=== PATIENT | female | born 1950 | race Caucasian/White ===

== ENCOUNTER 2017-05-21 13:03 | Inpatient (IN) | payer OTHER ==
--- NOTE | ~2017-05-21 | CR72 ---
[facility] A Service of [facility] RADIOLOGY TEXT RESULTS PATIENT: CLAYTON OLIVAS LOCATION: CEDOF : 49 UNIT #: [id number] AGE: [address]: Krys Castillo MD SEX: F ORDER DR: [id number] [facility] [address] [place], [place] [address] [id number] MR#: [id number] #: [id number] NAME: CLAYTON OLIVAS : 1950 SEX: F STUDY DATE/TIME: 05/21/2017 13:35 UNIT: [facility] ROOM: STUDY DESCRIPTION: CR Chest Single View Portable Attending Physician: Mike Santizo M.D. Ordering Physician: Mike Santizo M.D. Primary Care Physician: Akila Mahmood M.D. MEDICAL IMAGING REPORT This report is preliminary unless electronic signature is present EXAM Chest portable, 05/21/2017, 1335 hours. CLINICAL HISTORY 66-year-old woman with shortness of air today. History of hypertension and diabetes. COMPARISON 10/12/2016 FINDINGS Portable upright chest demonstrates mild cardiac enlargement increased from 10/12/2016. There is mild pulmonary venous distension and very mild bilateral interstitial change new from prior study. Findings are concerning for mild edema. There is no effusion or pneumothorax. IMPRESSION As compared to 10/12/2016, there is slight increase in size of the cardiac silhouette with new mild diffuse bilateral interstitial change raising concern for edema. There is no pleural effusion or pneumothorax. Dictated by... Lorena Krueger M.D. THIS IS AN ELECTRONICALLY VERIFIED REPORT Lorena Krueger M.D. at 05/21/2017 5:18 PM THAIS/sarah TD: 05/21/2017 16:53 JOB #: [id number] MEDICAL IMAGING REPORT [facility] A Service [facility] RADIOLOGY TEXT RESULTS PATIENT: CLAYTON OLIVAS LOCATION: CEDOF : 49 UNIT #: [id number] AGE: [address]: Krys Castillo MD SEX: F ORDER DR: Page 1 of 1 COPY
--- NOTE | ~2017-05-21 | PFT ---
[id number] [facility] [address] [place], [place] [address] [id number] MR#: [id number] NAME: CLAYTON OLIVAS ROOM: 557 SEX: F STUDY DATE/TIME: 05/26/2017 : 1950 AGE: 66 STUDY DESCRIPTION: Attending Physician: Krys Castillo M.D. Primary Care Physician: Akila Mahmood M.D. PULMONARY DIAGNOSTIC REPORT EXAM Pulmonary function test. FINDINGS Spirometry suggests a severe restrictive defect with an FVC of 960 cc, 28% of predicted. No definite obstructive defect was identified. Flow volume loop consistent with restriction. Please note that restriction cannot be confirmed by spirometry alone and suggests full PFTs with lung volumes and diffusion capacity if clinically indicated. Dictated by... Wyatt Watson/beth TD: 05/26/2017 09:23 JOB #: [id number] CC: Wyatt Watson M.D. PULMONARY DIAGNOSTIC REPORT Page 1 of 1
--- NOTE | ~2017-05-21 | EKG ---
PATIENT: CLAYTON OLIVAS UNIT #: [id number] Ventricular Rate: 111 BPM Atrial Rate: 300 BPM QRS Duration: 76 ms Q-T Interval: 378 ms QTC Calculation(Bezet): 514 ms P [place]: 58 degrees Calculated R [place]: 24 degrees Calculated T [place]: 101 degrees Diagnosis Line: Atrial flutter with variable A-V block with Diagnosis Line: premature ventricular or aberrantly conducted Diagnosis Line: complexes Diagnosis Line: Abnormal ECG Diagnosis Line: When compared with ECG of 21-MAY-2017 13:25, Diagnosis Line: (unconfirmed) Diagnosis Line: No significant change was found Diagnosis Line: Confirmed by AYANNA GARLAND MD ([id number]) on Diagnosis Line: 05/23/2017 9:54:48 AM INTERPRETING MD: MELONIE
--- NOTE | ~2017-05-21 | EKG ---
PATIENT: CLAYTON OLIVAS UNIT #: [id number] Ventricular Rate: 149 BPM Atrial Rate: 298 BPM QRS Duration: 136 ms Q-T Interval: 340 ms QTC Calculation(Bezet): 535 ms Calculated R [place]: 12 degrees Calculated T [place]: -128 degrees Diagnosis Line: Atrial flutter with 2:1 A-V conduction Diagnosis Line: Non-specific intra-ventricular conduction block Diagnosis Line: T wave abnormality, consider inferior ischemia Diagnosis Line: T wave abnormality, consider anterolateral Diagnosis Line: ischemia Diagnosis Line: Abnormal ECG Diagnosis Line: No previous ECGs available Diagnosis Line: Confirmed by LINA MOSCOSO MD ([id number]) on Diagnosis Line: 05/21/2017 5:28:35 PM INTERPRETING MD: BLANKA DE LA GARZA
--- NOTE | ~2017-05-21 | DS ---
Unit #: [id number] #: [id number] Patient: CLAYTON OLIVAS [id number] [facility] [address] [place], [place] [address] [id number] I MR#: [id number] NAME: CLAYTON OLIVAS ROOM: 55 Age: 66 Sex: F Admission Date: 05/21/2017 : 1950 Discharge Date: 05/25/2017 Attending Physician: Krys Castillo M.D. Primary Care Physician: Akila Mahmood M.D. DISCHARGE SUMMARY DISCHARGE DIAGNOSES 1. Acute hypoxic respiratory failure. 2. Acute bronchitis, resolved. 3. Chronic obstructive pulmonary disease exacerbation. 4. Atrial flutter with a 2:1 atrioventricular block of unknown duration. 5. Severe pulmonary artery hypertension. 6. Hypertension. 7. Hyperlipidemia. 8. Diabetes mellitus type 2. 9. Nicotine abuse. 10. Two-dimensional echocardiogram 05/22/2017 showed an ejection fraction of 50% to 55% paradoxical motion consistent with right ventricular volume overload and/or elevated right ventricular end-diastolic pressure. Moderately dilated left atrium. Moderately enlarged right atrium. Moderate tricuspid regurgitation. Right ventricular systolic pressure of 64 mmHg consistent with severe pulmonary hypertension. 11. 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 12. Status post cardiac catheterization 05/24/[address] Ho at [facility] that reveals the following results: a. Left main normal. b. Left anterior descending with moderate to severe calcification of the proximal half. The longer of the two left anterior descending arteries is normal and reaches the apex. The shorter of the two left anterior descending division shows three areas of 90% to 95% stenosis with the distal vessel being very small in caliber. Septal senior operations manager is normal. c. Circumflex artery is normal. d. Right coronary artery is a large-caliber dominant vessel with moderate to severe calcification in its mid segment. There is a long segment of 60% to 70% stenosis seen in mid vessel. Posterior descending artery and posterior left ventricular branches normal. e. Ejection fraction of 45% to 50%. f. Abdominal aortic angiography shows distal abdominal aorta with mild to moderate calcification and mild stenosis. Right common iliac artery with 99% stenosis at its origin. g. Severe pulmonary hypertension with pulmonary artery pressures 62/31 mmHg. Left ventricle with mild global hypokinesis. DISCHARGE MEDICATIONS 1. Nicotine 21 mg transdermal patch daily. 2. Metoprolol tartrate 50 mg b.i.d. Unit #: [id number] #: [id number] Patient: CLAYTON OLIVAS 3. Furosemide 40 mg daily. 4. Pravastatin 40 mg q.h.s. 5. Lisinopril 5 mg q.h.s. 6. Aspirin 81 mg daily. 7. Xarelto 20 mg daily with evening meal. 8. ProAir HFA two puffs q.6 h. p.r.n. 9. Glucophage 500 mg b.i.d. 10. Zyrtec 10 mg daily. HOSPITAL COURSE This is a 66-year-old white female who was admitted with a complaint of shortness of breath, cough and weakness. She also had exertional chest pain. She was ruled out for an acute myocardial infarction where her troponin was negative. It was felt the patient had acute hypoxic respiratory failure because the oxygen saturation level was 55%. She received oxygen supplementation. She was found to be in atrial flutter with a 2:1 conduction and a rapid ventricular response with a rate of 149 beats per minute with unknown duration. She was started on beta jillian for rate control. She was initially started on Lovenox for stroke prevention with a CHADS2-VASc score of 4. It was presumed that the patient had congestive heart failure on admission but the BMP was only mildly elevated at 224. Her chest x-ray showed no congestive heart failure. She had no diastolic dysfunction on her echocardiogram. She had normal left ventricular systolic function but severe pulmonary hypertension. She was diuresed initially with IV diuretics until the echocardiogram report was obtained. Diuretic was changed to oral. There was no determination of diastolic heart failure. Because of exertional angina the patient was advised to undergo cardiac catheterization which was scheduled for Wednesday. Cardiac catheterization revealed one of the limbs of the LAD to have three areas of 90% stenosis. Right coronary artery had moderate disease, a 60% to 70% mid vessel. It was felt the patient should undergo maximum medical therapy. A cardiac catheterization also found the patient to have peripheral artery disease with the right common iliac artery having 99% stenosis. CTA of the lower extremities with runoff was obtained however results are currently pending at this time. She will need to follow up with Vascular at discharge for peripheral artery disease. Because of respiratory failure and COPD exacerbation in a patient with continued nicotine abuse, Dr. Medrano saw the patient. PFTs were obtained with FEV1 of 30% predicted. Pulmonary thought the patient likely had a COPD and obstructive sleep apnea. They suggest that the patient have an outpatient PFT and sleep study. During her stay she was treated with bronchodilator Spiriva and Dulera. Her respiratory status improved. Oxygen was weaned to off. Her room air sats were between 93% and 94%. Today the patient's heart rate has improved. Her blood pressure is stable. Right groin site is healing well. She has ambulated in the room without chest pain or shortness of breath. She wants to go home and is stable for discharge. ASSESSMENT VITAL SIGNS: Blood pressure 119/79, heart rate 94, temperature 98.7, BMI 32. CHEST: Diminished breath sounds both lungs. HEART: S1, S2, with regular rate and rhythm. ABDOMEN: Soft, with bowel sounds present. EXTREMITIES: Right groin site without hematoma or bruit. Unit #: [id number] #: [id number] Patient: CLAYTON OLIVAS DIAGNOSTIC STUDIES LABORATORY: Glucose 135, BUN 12, creatinine 0.8, sodium 137, potassium 4.9, cholesterol 121, triglycerides 65, LDL 59, HDL 49, TSH 1.00, white count 6.3, hemoglobin 12.5, hematocrit 40.0, platelet count is 322. Blood cultures no growth after 24 hours. IMAGING: CTA of the lower extremities with runoff pending. CARDIOVASCULAR: Rhythm strip shows atrial flutter with a variable rate. CONSULTATIONS Dr. Medrano, pulmonary. DISCHARGE INSTRUCTIONS 1. The patient will be discharge home today. 2. Follow up with primary care physician at her next scheduled appointment. 3. Follow up with Dr. Castillo on July 07 at 1:15 p.m. 4. The patient has peripheral artery disease that was found on cardiac catheterization with 90% stenosis of the right common iliac artery. She has an appointment set up with Dr. Whitt on 06/14/2017, a 9:30 a.m. arrival with appointment at 10 o'clock at the [facility]. Details have been given to the patient. The patient remains in atrial flutter. She is on rate control with beta jillian. She has been started on Xarelto 20 mg daily with the evening meal for stroke prevention given CHADS2-VASc score of 4. The cost of Xarelto is $43 for the patient which she said she may or may not be able to manage. She has been provided with a three month sample with a prescription cardiovascular as well as a month of samples from our office. She is to apply for a [employer] patient assistance program to see if Xarelto can be given free. The application was given to the patient prior to discharge. She is to contact our office if she cannot afford Xarelto. This has been discussed at length with the patient and her . 5. Follow up with in one to two weeks and Dr. Walker after test, PFT and sleep study. 6. Prescriptions have been provided for her respiratory medications. 7. The patient has been encouraged to quit smoking. This also has been discussed at length with the patient about smoking cessation. Dictated by... Kenneth Silva A.P.R.N. for Wyatt Martino/elier TD: 05/25/2017 19:14 JOB #: [id number] CC: Marcel Medrano M.D. Unit #: [id number] #: [id number] Patient: CLAYTON OLIVAS DISCHARGE SUMMARY Page 1 of 1 X Kenneth Silva APRN X DISCHARGE SUMMARY
--- NOTE | ~2017-05-21 | CT20 ---
[facility] A Service of [facility] RADIOLOGY TEXT RESULTS PATIENT: CLAYTON OLIVAS LOCATION: [place] [address] : [birth year] UNIT #: [id number] AGE: [address]: Krys Castillo MD SEX: F ORDER DR: [id number] [facility] [address] [place], [place] [address] [id number] MR#: [id number] #: [id number] NAME: CLAYTON OLIVAS : 1950 SEX: F STUDY DATE/TIME: 05/25/2017 8:31 UNIT: [facility] ROOM: [facility] STUDY DESCRIPTION: CT Angio Lower Ext Raymond Attending Physician: Krys Castillo M.D. Ordering Physician: Davidson Ho M.D. Primary Care Physician: Akila Mahmood M.D. MEDICAL IMAGING REPORT This report is preliminary unless electronic signature is present EXAM CT Angio Lower Ext Bilateral Please see CT angiogram abdomen and pelvis for results. Dictated by... Aolnzo Corona M.D. THIS IS AN ELECTRONICALLY VERIFIED REPORT Alonzo Corona M.D. at 05/26/2017 7:44 AM ELVER/carolr TD: 05/25/2017 16:51 JOB #: [id number] MEDICAL IMAGING REPORT Page 1 of 1 COPY
--- NOTE | ~2017-05-21 | EKG ---
PATIENT: CLAYTON OLIVAS UNIT #: [id number] Ventricular Rate: 84 BPM Atrial Rate: 286 BPM QRS Duration: 80 ms Q-T Interval: 410 ms QTC Calculation(Bezet): 484 ms P [place]: 261 degrees Calculated R [place]: 46 degrees Calculated T [place]: 96 degrees Diagnosis Line: Atrial flutter with variable A-V block Diagnosis Line: Abnormal ECG Diagnosis Line: When compared with ECG of 21-MAY-2017 14:16, Diagnosis Line: (unconfirmed) Diagnosis Line: No significant change was found Diagnosis Line: Confirmed by AYANNA GARLAND MD ([id number]) on Diagnosis Line: 05/23/2017 10:02:57 AM INTERPRETING MD: MELONIE
--- NOTE | ~2017-05-21 | EKG ---
PATIENT: CLAYTON OLIVAS UNIT #: [id number] Ventricular Rate: 97 BPM Atrial Rate: 291 BPM QRS Duration: 76 ms Q-T Interval: 402 ms QTC Calculation(Bezet): 510 ms P [place]: 89 degrees Calculated R [place]: 23 degrees Calculated T [place]: 102 degrees Diagnosis Line: Atrial flutter with 3:1 A-V conduction Diagnosis Line: Nonspecific ST and T wave abnormality Diagnosis Line: Prolonged QT Diagnosis Line: Abnormal ECG Diagnosis Line: When compared with ECG of 22-MAY-2017 07:01, Diagnosis Line: No significant change was found Diagnosis Line: Confirmed by TING MAURO MD ([id number]) on Diagnosis Line: 05/24/2017 5:17:25 PM INTERPRETING MD: CHALO
--- NOTE | ~2017-05-21 | HP ---
Unit #: [id number] #: [id number] Patient: CLAYTON OLIVAS [id number] [facility] [address] [place], [place] [address] [id number] MR#: [id number] NAME: CLAYTON OLIVAS ROOM: 55 Age: 66 Sex: F Admission Date: 05/21/2017 : 1950 Attending Physician: Krys Castillo M.D. Primary Care Physician: Akila Mahmood M.D. HISTORY AND PHYSICAL HISTORY OF PRESENT ILLNESS This is a 66-year-old white female, new to our group, with a past medical history of hypertension, hyperlipidemia, and diabetes mellitus type 2. The patient has been told that she had asthma which is more likely to be COPD but she has not underwent recent spirometry. She had a 2D echocardiogram June 19, 2010, which revealed a normal ejection fraction of greater than or equal to 55% with trace mitral regurgitation. Exercise Cardiolite stress test was also completed on June 19, 2010, and reveals no ischemia with an ejection fraction of 62%. She actively smokes three packs of cigarettes per day. 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 There are no reports of previous cardiac catheterization. She denies any arrhythmias. She has not been on blood thinners in the past. She presented to the emergency department with complaints of shortness of breath. She states that over the last two weeks she has been increasingly short of breath. She has also had a cough which improves. There was a possible fever but not over the last couple of days. She denies any chills. She has had some nasal congestion which she attributes to chronic sinus issues. She has occasional headaches and dizziness but no syncope. The patient states that she has had pain in he chest with exertion for quite some time. It has become normal to her and she has not sought any medical attention for it. Over the last two weeks, she has had chest pain that she has mainly noticed with coughing. The pain is in the mid sternal chest. There is no radiation in the neck, jaw, shoulders or arms. There are no associated symptoms of nausea, vomiting or diaphoresis. She does admit to difficulty sleeping for the past three days and she cannot lay flat. She has been using three pillows and she finds that it is difficult to sleep on her back. She admits to some palpitations occasionally but not currently. She also admits to swelling in her legs over the last couple of weeks which has worsened. In the emergency department, her temperature was 98.1, pulse 148, respirations 28 and blood pressure 141/80 with an O2 saturation of 94% on room air. Initial EKG revealed atrial flutter with a rapid ventricular response of 149 beats/minute. There was T wave abnormality noted in the inferior leads as well as a nonspecific intraventricular conduction delay with a QRS of 0.13. Labs reveal a normal renal function and electrolytes. White blood cell count was 10.3. There was a mild neutrophil shift. BNP as 224. Lactic acid was initially pending but did come back elevated at 2.6. Initial cardiac enzymes were negative. Chest x-ray revealed increased cardiac silhouette from previous study. There were interstitial changes bilaterally concerning for pulmonary edema. She was given Solu-Medrol, aspirin, Lasix and started on diltiazem bolus and drip. She Unit #: [id number] #: [id number] Patient: CLAYTON OLIVAS was admitted for atrial flutter with rapid ventricular response as well as acute bronchitis and congestive heart failure. PAST MEDICAL HISTORY 1. 2D echocardiogram 06/19/2010 revealed an ejection fraction greater than or equal to 55%. Calcified mitral apparatus. Trace mitral regurgitation. No pericardial effusion. 2. Exercise Cardiolite stress test 06/19/2010 reveals no ischemia. Ejection fraction 62%. 3. Hypertension. 4. Hyperlipidemia. 5. Diabetes mellitus type 2. 6. History of asthma, likely COPD. No recent spirometry. 7. Stress incontinence. 8. Active tobacco abuse. PAST SURGICAL HISTORY 1. Left ankle surgery. 2. Right foot surgery. 3. Tubal ligation. 4. Right arm tendon and ligament repair after a dog bite. 5. Cryotherapy due to cervical cancer. HOME MEDICATIONS 1. Glucophage 500 mg p.o. b.i.d. 2. Lisinopril 5 mg p.o. q. h.s. 3. Pravastatin 40 mg p.o. q. h.s. 4. Aspirin 325 mg p.o. at bedtime. 5. Cetirizine 10 mg p.o. daily. 6. ProAir one puff inhalation q.6 hours p.r.n. for shortness of breath. ALLERGIES Penicillin and sulfa. SOCIAL HISTORY The patient lives in a private residence with her . She smokes three packs of cigarettes per day. She has smoked for 59 years. There are no reports of alcohol or illicit drug use. FAMILY HISTORY Significant for heart disease in her father. REVIEW OF SYSTEMS Ten point review of systems is negative except for details noted above in HPI. PHYSICAL EXAMINATION VITAL SIGNS: Temperature 98.1, pulse 148, blood pressure 153/96. CONSTITUTIONAL: This is a 66 year-old white female who is ill appearing. SKIN: Warm and dry. NECK: Supple. Positive jugular vein distention. No hepatojugular reflux. Normal carotid upstrokes. No carotid bruits auscultated. HEART: S1 and S2. Irregularly irregular. No murmurs, rubs or gallops. LUNGS: Bilateral breath sounds have scattered wheezes. Respirations slightly tachypneic and labored. ABDOMEN: Soft, nontender, and nondistended. Positive bowel sounds auscultated x4 quadrants. No ascites noted. EXTREMITIES: Bilateral extremities have at least 2+ pitting edema. DP Unit #: [id number] #: [id number] Patient: OLIVAS,CLAYTON and PT pulses 2+. Capillary refill less than three seconds. DIAGNOSTIC STUDIES LABORATORY: White blood cell count 10.3, hemoglobin 13.5, hematocrit 41.3, platelets 398, sodium 136, potassium 3.6, chloride 99, CO2 28, BUN 10, creatinine 0.5, glucose 256, positive left shift. AST 15, ALT 21, alkaline phos. 123. BNP 224. Lactic acid 2.6, INR 1.1. Point of care troponin 0.05. IMAGING: Chest x-ray reveals slightly increased cardiac silhouette from previous study. Bilateral interstitial changes concerning for pulmonary edema. CARDIOVASCULAR: Electrocardiogram reveals atrial flutter with a rapid ventricular response of 149 beats/minute. T wave abnormality in the inferior leads. Poor R wave progression in the anterolateral leads. QTC prolonged at 535 msec. IMPRESSION 1. Atrial flutter, age undetermined with a 2:1 AV block. 2. Acute bronchitis. 3. Acute congestive heart failure, 2D echocardiogram pending. 4. Recurrent chest pain, rule out myocardial infarction. 5. Hypertension. 6. Hyperlipidemia. 7. Diabetes mellitus type 2. 8. Probable underlying chronic obstructive pulmonary disease. 9. Active tobacco abuse. PLAN 1. The patient presented to the hospital with complaints of shortness of breath. She was found to have atrial flutter with a rapid ventricular response as well as evidence of acute bronchitis and congestive heart failure. 2. She has been placed on Cardizem drip with parameters. Will start metoprolol and wean Cardizem as tolerated. 3. Will initiate a low dose aspirin and continue AJYLEN inhibitor and statin. 4. The patient will be diuresed with Lasix and placed on strict intake and output and fluid restriction. 5. A TSH and fasting lipid profile will be obtained. 6. Serial cardiac enzymes and EKG will be ordered. Once the patient's lungs improve, she will need to undergo ischemic workup. She has been recommended for cardiac catheterization which will tentatively be scheduled for Wednesday. 7. Her CHADS2-VASc score is calculated to at least a 4. She will be started on Lovenox for the time being. longterm anticoagulation will need to be addressed prior to discharge. 8. The patient is on no scheduled inhalers and likely has COPD. Dr. Walker will be consulted for COPD as well as possible pneumonia. 9. The patient's lactic acid level is mildly elevated. Blood cultures will be obtained and she may need antibiotics. 10. The patient has been advised to refrain from tobacco abuse. In the meantime, she has been placed on a nicotine patch. Unit #: [id number] #: [id number] Patient: CLAYTON OLIVAS Dictated by Lisa Hanna APRN for Wyatt Martino TD: 05/22/2017 11:50 JOB #: [id number] HISTORY AND PHYSICAL Page 1 of 1 X X HISTORY AND PHYSICAL
--- NOTE | ~2017-05-21 | CO ---
Unit #: [id number] #: [id number] Patient: CLAYTON OLIVAS [id number] [address] [address] [id number] MR#: [id number] NAME: CLAYTON OLIVAS ROOM: 55 Age: 66 Sex: F Admission Date: 05/21/2017 : 1950 Attending Physician: Krys Castillo M.D. Primary Care Physician: Akila Mahmood M.D. Consultation Date: 05/22/2017 CONSULTATION REPORT INDICATION FOR CONSULT Question of chronic obstructive pulmonary disease, respiratory failure. HISTORY OF PRESENT ILLNESS Ms. Olivas is a 66-year-old woman who saw years ago and was told she has had asthma, has not been seen or had pulmonary followup since then. She has continued to have ongoing tobacco abuse since then with a chronic cough. She was treated for pneumonia several months ago and at that point in time, she had increased cough with production from her baseline, but with therapy, it had returned to her baseline levels and recently, she has had no increased volume or change in color in her cough from her chronic baseline. She has had no fevers. She did have progressive shortness of breath, which is why she presented to the hospital where she was found to be in a flutter, which was treated with diltiazem. She was started on anticoagulation and rate control per Cardiology with plans for heart catheterization on Wednesday. She currently denies any shortness of breath at rest or purulent sputum. The patient has had increased rescue albuterol use using 3 to 4 times per day prior to admission. She is on no other controller medications. PAST MEDICAL HISTORY Positive for diabetes, history of asthma, history of tubal ligation. ALLERGIES Reported allergies to penicillin and sulfa. FAMILY HISTORY Positive for coronary artery disease. SOCIAL HISTORY Positive for ongoing tobacco abuse. CURRENT MEDICATIONS Include therapeutic Lovenox, diltiazem, Lipitor, NovoLog, Zestril, aspirin, Lopressor, Lasix, p.r.n. albuterol, Claritin, Lipitor, Zofran, Tylenol, transdermal nicotine. REVIEW OF SYSTEMS Negative for fever or chills. Negative for visual or other complaints. No hearing deficits. No adenopathy. No bleeding. No diarrhea. No dysuria. Positive chronic cough. Negative chest pain. Negative lower extremity edema. No muscle weakness. Negative headaches. Unit #: [id number] #: [id number] Patient: CLAYTON OLIVAS PHYSICAL EXAMINATION VITAL SIGNS: Temperature 98.4, pulse 99, respirations 30, sats 97% on 2 L, and blood pressure 129/67. DIAGNOSTIC STUDIES LABORATORY RESULTS: Sodium 133, potassium 3.9, chloride 98, bicarbonate 27, glucose 160, BUN 13, creatinine 0.5. CBC; white count 8, hematocrit 39, platelets 358. Lactic has been elevated at 3.7. IMAGING STUDIES: Chest x-ray showed no evidence of pneumonia. IMPRESSION 1. Dyspnea. 2. Tobacco abuse. 3. Respiratory failure. 4. Lactic acidosis. PLAN Continue , agree with plans for heart catheterization. We will increase her bronchodilators. Her lactic acidosis may be secondary to excessive beta agonist use and hypoxia and should hopefully resolve with just supportive care and decreased rescue albuterol use as primary therapy. We will continue O2 needs and reassess for home needs prior to discharge. Encourage tobacco cessation. We will check spirometry to assess underlying lung disease. At this point, I do not see need for any antibiotics or steroids from a pulmonary standpoint. We will continue to follow and make further recommendations as clinically indicated. Thank you for the opportunity to be involved in her care. Dictated by... Marcel Medrano M.D. UC[facility]/shelby TD: 05/24/2017 05:14 JOB #: [id number] CONSULTATION REPORT Page 1 of 1 X Marcel Medrano MD X CONSULTATION REPORT
--- NOTE | ~2017-05-21 | CT14 ---
[facility] A Service of [facility] & [facility] RADIOLOGY TEXT RESULTS PATIENT: CLAYTON OLIVAS LOCATION: [facility] 557-01 : [birth year] UNIT #: [id number] AGE: [address]: Krys Castillo MD SEX: F ORDER DR: [id number] [facility] [address] [place], [place] [address] [id number] MR#: [id number] Acc #: [id number] NAME: CLAYTON OLIVAS : 1950 SEX: F STUDY DATE/TIME: 05/25/2017 8:31 UNIT: [facility] ROOM: [facility] STUDY DESCRIPTION: CT Angio Abdomen and Pelvis Attending Physician: Krys Castillo M.D. Ordering Physician: Davidson Ho M.D. Primary Care Physician: Akila Mahmood M.D. MEDICAL IMAGING REPORT This report is preliminary unless electronic signature is present EXAM CT angiogram of the abdomen and pelvis and bilateral lower extremity runoff INDICATIONS Bilateral leg swelling for 1 week. Unable to walk for 3 weeks. Per patient unable to access right groin for heart cath yesterday. TECHNIQUE CT angiogram of the abdomen and pelvis and bilateral lower extremity runoff was performed using the CT angiography protocol. Coronal, sagittal 3-D reformatted images were obtained. This CT exam was performed with one or more of the following radiation dose reduction techniques: automatic control, adjustment of mA and/or kV according to patient size, and iterative reconstruction. COMPARISON No comparison studies are available. FINDINGS CT ANGIOGRAM OF THE ABDOMEN/PELVIS: The abdominal aorta is nonaneurysmal. There is extensive atherosclerotic plaque within the infrarenal abdominal aorta with areas of mild narrowing including a focal irregular plaque within the abdominal aorta at the level of the kidneys which appears to protrude within the lumen and is somewhat irregular. There is extensive plaque at the bifurcation. There is probably at least a severe stenosis at the origin of the right common iliac artery and possibly occlusion. There is a moderate to severe stenosis at the origin of the left common iliac artery. There is plaque throughout the external iliac arteries and they are diffusely small in caliber. There is extensive plaque involving the internal iliac arteries as well. Celiac artery is patent. The SMA is patent with minimal plaque at its origin. There are 2 left renal arteries arising directly off the aorta both of which are patent. Single right renal artery is patent. The inferior mesenteric artery is patent. [facility] A Service of [facility] & [facility] RADIOLOGY TEXT RESULTS PATIENT: CLAYTON OLIVAS LOCATION: [facility] 557-01 : [birth year] UNIT #: [id number] AGE: [address]: Krys Castillo MD SEX: F ORDER DR: CT ANGIOGRAM OF THE RIGHT LOWER EXTREMITY: There is a high bifurcation of the right common femoral artery. There is diffuse mild narrowing of the right common femoral artery. The right superficial femoral artery is diffusely small in caliber with some scattered areas of mild narrowing proximally and a more focal plaque distally with moderate narrowing. Scattered areas of mild narrowing within the above-knee popliteal artery. Runoff to the right foot is supplied by both the anterior and posterior tibial arteries. The peroneal artery becomes diminutive at the level of the ankle. CT ANGIOGRAM OF THE LEFT LOWER EXTREMITY: There is diffuse plaque within the left common femoral artery with a focal area of moderate narrowing just before the bifurcation. The left superficial femoral artery is small in caliber with scattered areas of mild narrowing proximally and a more focal plaque distally with mild narrowing. Scattered areas of mild narrowing in the above-knee popliteal artery. Runoff to the left foot is provided by the anterior and posterior tibial arteries. The peroneal artery is diminutive past the level of the ankle. CT OF THE ABDOMEN: Emphysematous changes in the lung bases. The liver, gallbladder and spleen are unremarkable. The kidneys are unremarkable. There is some low density nodular thickening of the left adrenal gland likely reflecting some small adenomas. The right adrenal gland is unremarkable. The pancreas is unremarkable. PELVIS: There is a calcified uterine fibroid. Colon is unremarkable. No free fluid. Noted is a bilateral lower extremity edema. Bone windows are unremarkable. IMPRESSION 1. There is extensive atherosclerotic plaque involving the infrarenal abdominal aorta extending to the bifurcation involving both origins of the common iliac arteries. The origin of the right common iliac artery is either severely stenosed or possibly occluded. There is moderate narrowing at the origin of the left common iliac artery. There is also a focal ill-defined atherosclerotic plaque protruding into the lumen of the abdominal aorta at the level of the mid renal arteries. 2. There is a high bifurcation of the right common femoral artery with diffuse mild narrowing of the right common femoral artery. 3. Scattered areas of mild narrowing in the superficial femoral arteries proximally and a focal moderate area of narrowing distally in the left superficial femoral artery. 4. Runoff to both feet provided by the anterior and posterior tibial arteries. The peroneal arteries are diminutive past the level of the ankles bilaterally. STS. [facility] A Service of [facility] RADIOLOGY TEXT RESULTS PATIENT: CLAYTON OLIVAS LOCATION: [facility] 557-01 : [birth year] UNIT #: [id number] AGE: [address]: Krys Castillo MD SEX: F ORDER DR: 5. Additional findings as described Dictated by... Alonzo Corona M.D. THIS IS AN ELECTRONICALLY VERIFIED REPORT Alonzo Corona M.D. at 05/26/2017 7:34 AM ELVER/reece TD: 05/25/2017 16:39 JOB #: [id number] MEDICAL IMAGING REPORT Page 1 of 1 COPY
[~2017-05-21 13:03] MED LIST: ALL DAY ALLERGY10 MG PO; BAYER ASPIRIN325 M1 PO; GLUCOPHAGE500 MG PO; PRAVASTATIN SOD40 MG PO; PRINIVIL5 MG PO; PROAIR HFA8.5 GM INH
[2017-05-21 13:39] LABS: BASOPHIL# 0.4 X10e3 (0-0.3); BASOPHIL% 3.9 % (0-2.5); EOSINOPHIL% 0.2 % (0.0-7.0); HEMATOCRIT 41.3 % (35.0-45.0); HEMOGLOBIN 13.5 gm/dL (12.0-16.0); LYMPHOCYTE# 1.1 X10e3 (1.0-3.5); MEAN CELL VOLUME 89.5 FL (83-96); MEAN CORPUSCULAR HEMOGLOBIN 29.3 PG (28-34); MEAN CORPUSCULAR HGB CONC 32.7 g/dL (30-36); MEAN PLATELET VOLUME 7.9 FL (6.5-11.5); MONOCYTE# 0.8 X10e3 (0-1.0); MONOCYTE% 7.7 % (3.0-12.0); NEUTROPHIL% 77.2 % (40-75); PLATELET COUNT 398 X10e3 (140-420); RED BLOOD COUNT 4.61 X10e (3.90-5.30); RED CELL DISTRIBUTION WIDTH 15.3 % (11.0-15.5); WHITE BLOOD COUNT 10.3 X10e3 (4.0-10.5)
[2017-05-21 13:43] LABS: DIFF IND NO
[2017-05-21 13:48] LABS: POC - CKMB 1.5 ng/mL (0.0-7.9); POC - TROPONIN <0.05 ng/mL (<=0.05)
[2017-05-21 13:50] LABS: INR 1.1; PARTIAL THROMBOPLASTIN TIME 24.2 SECONDS (23.5-31.3); PROTHROMBIN TIME (PATIENT) 11.7 SECONDS (10.0-11.7)
[2017-05-21 13:59] LABS: ALBUMIN SERUM 3.7 g/dL (3.5-5.0); BILIRUBIN, DIRECT 0.1 mg/dL (0.0-0.2); BILIRUBIN,INDIRECT 0.6 mg/dL (0.0-0.9); BILIRUBIN,TOTAL 0.7 mg/dL (0.2-2.0); CALCIUM SERUM 8.6 mg/dL (8.4-10.2); CREATININE SERUM 0.5 mg/dL (0.6-1.4); GLOM FILT RATE Estimated 100.2 mL/min (>60); POTASSIUM 3.6 mmol/L (3.5-5.1); PROTEIN TOTAL SERUM 7.1 g/dL (6.0-8.3)
[2017-05-21 15:08] LABS: POC - CKMB 1.2 ng/mL (0.0-7.9); POC - TROPONIN <0.05 ng/mL (<=0.05)
[2017-05-21 22:25] LABS: CK TOTAL 39 IU/L (26-140)
[2017-05-22 03:40] LABS: BASOPHIL# 0.1 X10e3 (0-0.3); BASOPHIL% 1.3 % (0-2.5); DIFF IND NO; HEMOGLOBIN 12.4 gm/dL (12.0-16.0); LYMPHOCYTE# 1.8 X10e3 (1.0-3.5); LYMPHOCYTE% 21.4 % (17.0-45.0); MEAN CELL VOLUME 88.5 FL (83-96); MEAN CORPUSCULAR HEMOGLOBIN 28.3 PG (28-34); MONOCYTE# 0.6 X10e3 (0-1.0); MONOCYTE% 7.2 % (3.0-12.0); NEUTROPHIL% 70.1 % (40-75); PLATELET COUNT 358 X10e3 (140-420); RED CELL DISTRIBUTION WIDTH 15.3 % (11.0-15.5); WHITE BLOOD COUNT 8.6 X10e3 (4.0-10.5)
[2017-05-22 04:04] LABS: CK TOTAL 40 IU/L (26-140)
[2017-05-22 04:12] LABS: CALCIUM SERUM 8.5 mg/dL (8.4-10.2); CREATININE SERUM 0.5 mg/dL (0.6-1.4); GLOM FILT RATE Estimated 100.2 mL/min (>60); POTASSIUM 3.9 mmol/L (3.5-5.1)
[2017-05-23 06:25] LABS: HEMATOCRIT 38.7 % (35.0-45.0); HEMOGLOBIN 12.3 gm/dL (12.0-16.0); MEAN CELL VOLUME 88.6 FL (83-96); MEAN CORPUSCULAR HEMOGLOBIN 28.2 PG (28-34); MEAN CORPUSCULAR HGB CONC 31.8 g/dL (30-36); MEAN PLATELET VOLUME 7.5 FL (6.5-11.5); RED BLOOD COUNT 4.37 X10e (3.90-5.30); RED CELL DISTRIBUTION WIDTH 15.4 % (11.0-15.5); WHITE BLOOD COUNT 7.7 X10e3 (4.0-10.5)
[2017-05-23 07:02] LABS: BUN/CREATININE RATIO 18.75; CALCIUM SERUM 8.7 mg/dL (8.4-10.2); CREATININE SERUM 0.8 mg/dL (0.6-1.4); GLOM FILT RATE Estimated 76.4 mL/min (>60); POTASSIUM 4.4 mmol/L (3.5-5.1)
[2017-05-24 07:59] LABS: HEMOGLOBIN 12.5 gm/dL (12.0-16.0); MEAN CELL VOLUME 89.2 FL (83-96); MEAN CORPUSCULAR HGB CONC 31.3 g/dL (30-36); MEAN PLATELET VOLUME 7.9 FL (6.5-11.5); RED BLOOD COUNT 4.48 X10e (3.90-5.30); RED CELL DISTRIBUTION WIDTH 15.1 % (11.0-15.5); WHITE BLOOD COUNT 6.3 X10e3 (4.0-10.5)
[2017-05-24 08:16] LABS: INR 1.1; PARTIAL THROMBOPLASTIN TIME 27.3 SECONDS (23.5-31.3); PROTHROMBIN TIME (PATIENT) 11.6 SECONDS (10.0-11.7)
[2017-05-24 08:55] LABS: CALCIUM SERUM 8.7 mg/dL (8.4-10.2); CREATININE SERUM 0.8 mg/dL (0.6-1.4); GLOM FILT RATE Estimated 76.4 mL/min (>60); POTASSIUM 4.9 mmol/L (3.5-5.1)
[2017-05-25] MEDS ORDERED: XARELTO20 MG PO (12:36)
[2017-05-25] MEDS ORDERED: TOPROL XL 50 MG50 MG PO (12:36)
[2017-05-25] MEDS ORDERED: BREO ELLIPTA 11 EACH INH (12:37)
[2017-05-25] MEDS ORDERED: LASIX PO (12:37)
[2017-05-25] MEDS ORDERED: NICOTINE PATCH1 EACH TD (15:51)
[2017-08-03] MEDS ORDERED: CLOPIDOGREL75 MG PO (13:33)
[2017-08-03] MEDS ORDERED: NEBULIZER (13:39)
[2017-08-03] MEDS ORDERED: DELTASONE20 MG (13:45)
[2017-08-03] MEDS ORDERED: DOXYCYCLINE HY100 M3 PO (13:45)
== END 2017-05-25 16:34 | disposition home or self-care (01) | DRG 286 ==
LOC: CED 13:03 → CEDOF 15:17 → C5B 15:17 → CEDOF 17:14 → CED 17:14 → C5B 20:10 → CEDOF 20:10 → C5B 05-25 16:34
PROVIDERS: Emergency Medicine; Internal Medicine Cardiovascular Disease
PROC: B24BYZZ Ultrasonography of Heart with Aorta using Other Contrast (ICD-10-PCS; 2017-05-21)
PROC: 4A023N8 Measurement of Cardiac Sampling and Pressure, Bilateral, Percutaneous Approach (ICD-10-PCS; 2017-05-24)
PROC: B310YZZ Fluoroscopy of Thoracic Aorta using Other Contrast (ICD-10-PCS; 2017-05-24)
PROC: B211YZZ Fluoroscopy of Multiple Coronary Arteries using Other Contrast (ICD-10-PCS; 2017-05-24)
PROC: B215YZZ Fluoroscopy of Left Heart using Other Contrast (ICD-10-PCS; 2017-05-24)
PROC: B420YZZ Computerized Tomography (CT Scan) of Abdominal Aorta using Other Contrast (ICD-10-PCS; principal; 2017-05-25)
PROC: B42CYZZ Computerized Tomography (CT Scan) of Pelvic Arteries using Other Contrast (ICD-10-PCS; 2017-05-25)
PROC: B42HYZZ Computerized Tomography (CT Scan) of Bilateral Lower Extremity Arteries using Other Contrast (ICD-10-PCS; 2017-05-25)
DX: I48.92 Unspecified atrial flutter (principal); J96.01 Acute respiratory failure with hypoxia; E87.2 Acidosis; J44.1 Chronic obstructive pulmonary disease with (acute) exacerbation; I74.5 Embolism and thrombosis of iliac artery; I25.119 Atherosclerotic heart disease of native coronary artery with unspecified angina pectoris; I11.0 Hypertensive heart disease with heart failure; E78.5 Hyperlipidemia, unspecified; E11.9 Type 2 diabetes mellitus without complications; Z79.84 Long term (current) use of oral hypoglycemic drugs; F17.210 Nicotine dependence, cigarettes, uncomplicated; J45.909 Unspecified asthma, uncomplicated; Z98.51 Tubal ligation status; Z79.82 Long term (current) use of aspirin; Z88.0 Allergy status to penicillin; Z88.2 Allergy status to sulfonamides; Z85.41 Personal history of malignant neoplasm of cervix uteri; J20.9 Acute bronchitis, unspecified; I50.9 Heart failure, unspecified; R07.9 Chest pain, unspecified; F17.200 Nicotine dependence, unspecified, uncomplicated; I27.2 Other secondary pulmonary hypertension; I73.9 Peripheral vascular disease, unspecified; I07.1 Rheumatic tricuspid insufficiency
CPT/HCPCS: 36415; 71010; 73706; 74174; 80048; 80061; 80076; 82550; 82553; 82810; 82947; 83036; 83605; 83735; 83880; 84443; 84484; 85025; 85027; 85610; 85730; 87040; 93005; 93306; 94640; 94664; 94760; 96365; 96366; 96375; 99285; C1769; C1887; C1894; J1644; J1650; J1815; J1940; J2250; J2930; J3010; J3490; Q9967

== ENCOUNTER 2017-05-26 18:44 | Emergency (ER) | payer OTHER ==
--- NOTE | ~2017-05-26 | EKG ---
PATIENT: CLAYTON OLIVAS UNIT #: [id number] Ventricular Rate: 131 BPM Atrial Rate: 315 BPM QRS Duration: 80 ms Q-T Interval: 338 ms QTC Calculation(Bezet): 499 ms Calculated R [place]: 38 degrees Calculated T [place]: 124 degrees Diagnosis Line: Atrial flutter with variable A-V block Diagnosis Line: ST elevation consider inferior injury or acute Diagnosis Line: infarct Diagnosis Line: Consider right ventricular involvement in acute Diagnosis Line: inferior infarct Diagnosis Line: Abnormal ECG Diagnosis Line: When compared with ECG of 24-MAY-2017 05:48, Diagnosis Line: ST elevation now present in Inferior leads Diagnosis Line: Confirmed by BALDOMERO WORTHINGTON MD ([id number]) on Diagnosis Line: 05/27/2017 10:40:49 AM INTERPRETING MD: ELIN DE LA GARZA
[~2017-05-26 18:44] MED LIST changes: +BREO ELLIPTA 11 EACH INH; +LASIX PO; +NICOTINE PATCH1 EACH TD; +TOPROL XL 50 MG50 MG PO; +XARELTO20 MG PO
[2017-05-26 19:27] LABS: BASOPHIL% 0.5 % (0-2.5); EOSINOPHIL# 0.1 X10e3 (0-0.7); EOSINOPHIL% 1.1 % (0.0-7.0); HEMATOCRIT 41.3 % (35.0-45.0); HEMOGLOBIN 13.3 gm/dL (12.0-16.0); LYMPHOCYTE# 1.8 X10e3 (1.0-3.5); LYMPHOCYTE% 20.1 % (17.0-45.0); MEAN CORPUSCULAR HEMOGLOBIN 28.4 PG (28-34); MEAN CORPUSCULAR HGB CONC 32.3 g/dL (30-36); MEAN PLATELET VOLUME 7.9 FL (6.5-11.5); MONOCYTE# 0.7 X10e3 (0-1.0); MONOCYTE% 7.9 % (3.0-12.0); NEUTROPHIL# 6.4 X10e3 (1.5-7.1); NEUTROPHIL% 70.4 % (40-75); PLATELET COUNT 298 X10e3 (140-420); RED CELL DISTRIBUTION WIDTH 15.5 % (11.0-15.5); WHITE BLOOD COUNT 9.1 X10e3 (4.0-10.5)
[2017-05-26 19:29] LABS: DIFF IND NO
[2017-05-26 19:30] LABS: POC - CKMB <1.0 ng/mL (0.0-7.9); POC - TROPONIN <0.05 ng/mL (<=0.05)
[2017-05-26 19:49] LABS: BUN/CREATININE RATIO 17.14; CALCIUM SERUM 8.4 mg/dL (8.4-10.2); CREATININE SERUM 0.7 mg/dL (0.6-1.4); GLOM FILT RATE Estimated 89.7 mL/min (>60); POTASSIUM 3.7 mmol/L (3.5-5.1)
[2017-05-26 20:51] LABS: POC - CKMB <1.0 ng/mL (0.0-7.9); POC - TROPONIN <0.05 ng/mL (<=0.05)
[2017-08-03] MEDS ORDERED: CLOPIDOGREL75 MG PO (13:33)
[2017-08-03] MEDS ORDERED: NEBULIZER (13:39)
[2017-08-03] MEDS ORDERED: DOXYCYCLINE HY100 M3 PO (13:45)
[2017-08-03] MEDS ORDERED: DELTASONE20 MG (13:45)
== END 2017-05-26 21:08 | disposition home or self-care (01) ==
LOC: CED 18:44
PROVIDERS: Emergency Medicine
DX: R07.89 Other chest pain (principal); I48.92 Unspecified atrial flutter; J44.9 Chronic obstructive pulmonary disease, unspecified; F17.200 Nicotine dependence, unspecified, uncomplicated; Z88.0 Allergy status to penicillin; Z88.2 Allergy status to sulfonamides; Z79.84 Long term (current) use of oral hypoglycemic drugs; Z79.899 Other long term (current) drug therapy; Z79.82 Long term (current) use of aspirin
CPT/HCPCS: 36415; 80048; 82553; 83880; 84484; 85025; 93005; 96374; 96376; 99285; J3490